=== PATIENT | male | born 1975 | race Caucasian/White ===

== ENCOUNTER 2017-11-09 17:03 | Emergency (ER) | payer OTHER ==
[2017-11-09 17:15] VITALS: BP 116/72
--- NOTE | 2017-11-09 17:47 | RAD ---
INDICATION: Left hand injury. TECHNIQUE: 4 views of the left hand were obtained. FINDINGS: There is soft tissue swelling in the third finger centered at the proximal interphalangeal joint. The bones are normal alignment. No fracture is seen. Joint spaces appear maintained. IMPRESSION: SOFT TISSUE SWELLING, NO FRACTURE IS SEEN.
--- NOTE | 2017-11-09 18:15 | UC ---
Upper Extremity HPI - HPI Summary HPI Summary: Patient endorses pain to the left PIP joint of the middle finger and pain to the index finger which is worse with flexion and extension 3 weeks. He states he has injured both fingers at different times approximate 2-3 weeks ago. The index finger was hyperextended during a game of volleyball and he continues to have pain with flexion and extension. Worse with extension with radiation of pain into the dorsum of the hand. He is unable to flex fully and is unable to flex at the MCP joint past 90. The middle finger has swelling to the PIP joint with no other swelling, ecchymosis or injury to the DIP or MCP. - History of Current Complaint Chief Complaint: UCUpperExtremity Stated Complaint: FINGER PAIN Time Seen by Provider: 11/09/17 17:23 Hx Obtained From: Patient ?: No Onset/Duration: Sudden Onset Severity Initially: Moderate Severity Currently: Moderate Pain Intensity: 2 Pain Scale Used: 0-10 Numeric Location Of Pain: Is Discrete @ - Index and middle finger of the left hand Aggravating Factor(s): Lifting, Flexion, Extension Alleviating Factor(s): Nothing Associated Signs And Symptoms: Positive: Negative Related History: Dominant Hand Left - Risk Factors Non-Orthopedic Risk Factor: Negative DVT Risk Factors: Negative Septic Arthritis Risk Factor: Negative Compartment Syndrome Risk Factors: Pain - Allergies/Home Medications Allergies/Adverse Reactions: Allergies Allergy/AdvReac Type Severity Reaction Status Date / Time No Known Allergies Allergy Verified 11/09/17 17:16 Home Medications: Home Medications NK [No Home Medications Reported] 11/09/17 [History Confirmed 11/09/17] PMH/Surg Hx/FS Hx/Imm Hx Previously Healthy: Yes Other History Of: Negative For: Anticoagulant Therapy - Surgical History Surgical History: None - Family History Known Family History: Negative: Cardiac Disease, Hypertension, Diabetes - Social History Occupation: Employed Full-time Lives: With Family Alcohol Use: Daily Alcohol Amount: 2 DRINKS/DAY Substance Use Type: Marijuana Smoking Status (MU): Current Every Day Smoker Type: Cigarettes Amount Used/How Often: 3-4 CIG/DAY Have You Smoked in the Last Year: Yes Review of Systems Constitutional: Negative Skin: Negative Respiratory: Negative Cardiovascular: Negative Motor: Decreased ROM Musculoskeletal: Arthralgia - Pain to the PIP joint of the left hand Neurological: Negative Psychological: Negative Is Patient Immunocompromised?: No All Other Systems Reviewed And Are Negative: Yes Physical Exam Triage Information Reviewed: Yes Appearance: Well-Appearing, Well-Nourished Vital Signs: Initial Vital Signs Temp 98.5 F 11/09/17 17:12 Pulse 80 11/09/17 17:12 Resp 18 11/09/17 17:12 BP 116/72 11/09/17 17:12 Pulse Ox 100 11/09/17 17:12 Vital Signs Reviewed: Yes Eye Exam: Normal Eyes: Positive: Conjunctiva Clear Neck exam: Normal Neck: Positive: Supple, No Lymphadenopathy Respiratory Exam: Normal Respiratory: Positive: Chest non-tender Cardiovascular Exam: Normal Cardiovascular: Positive: RRR Musculoskeletal Exam: Normal Musculoskeletal: Positive: Strength Intact Neurological Exam: Normal Neurological: Positive: Alert Psychological: Positive: Normal Response To Family Skin Exam: Normal Upper Extremity Course/Dx - Course Course Of Treatment: X-ray obtained which shows some soft tissue swelling, but no fractures seen. JOINT spaces are in alignment. I am concerned with the collateral ligament injury to the index finger. Possible small hairline volar plate fracture to the left middle finger, but this is not picked up on x-ray. The injuries have occurred 2-3 weeks ago and I see no benefit at shane taping the 2 fingers together unless for comfort. I have advised him to follow-up with an orthopedic hand surgeon as soon as possible and call for an appointment. He is okay with this plan at discharge. Pulses +2 intact bilaterally and there is no numbness or tingling in the ipsilateral fingertips. - Differential Dx/Diagnosis Differential Diagnosis/HQI/PQRI: Fracture (Closed), Strain, Sprain Provider Diagnoses: Collateral ligament strain, Soft tissue swelling PIP joint Discharge - Discharge Plan Condition: Stable Disposition: HOME Patient Education Materials: Finger Sprain (ED) Referrals: Coco Michael MD [Primary Care Provider] - Linden Mckay MD [Medical Doctor] - Additional Instructions: Please follow-up with Dr. Mckay or Dr. Grubbs Avoid sports activities until follow-up You can shane tape the 2 fingers together for comfort
== END 2017-11-09 18:00 | disposition home or self-care (01) ==
LOC: UCEAST 17:03
DX: S63.611A Unspecified sprain of left index finger, initial encounter (principal); X50.9XXA Other and unspecified overexertion or strenuous movements or postures, initial encounter; Y93.68 Activity, volleyball (beach) (court); Y92.39 Other specified sports and athletic area as the place of occurrence of the external cause; M79.89 Other specified soft tissue disorders; F17.210 Nicotine dependence, cigarettes, uncomplicated
CPT/HCPCS: 99211; G0463

== ENCOUNTER 2018-05-12 18:34 | Emergency (ER) | payer OTHER ==
[2018-05-12 19:13] VITALS: BP 118/68
--- NOTE | 2018-05-12 19:20 | UC ---
Lower Extremity/Ankle HPI - HPI Summary HPI Summary: This patient is a 42 year old male presenting [place] [facility] [place] with a chief complaint of left ankle pain since a few hours ago. Patient states that he turned his ankle playing soccer and felt immediate pain. The pain is rated 7/10 in severity. Symptoms aggravated by movement, palpation. Symptoms alleviated by nothing. Patient is unable to ambulate. - History of Current Complaint Stated Complaint: ANKLE INJURY Time Seen by Provider: 05/12/18 19:04 Hx Obtained From: Patient Onset/Duration: Lasting Hours, Still Present Severity Currently: Severe Pain Intensity: 7 Pain Scale Used: 0-10 Numeric Aggravating Factor(s): Ambulation Alleviating Factor(s): Nothing Able to Bear Weight: No - Allergies/Home Medications Allergies/Adverse Reactions: Allergies Allergy/AdvReac Type Severity Reaction Status Date / Time No Known Allergies Allergy Verified 05/12/18 19:11 Home Medications: Home Medications Naproxen Sodium [Aleve] 440 mg PO Q12HR PRN 05/12/18 [History Confirmed 05/12/18 ] PMH/Surg Hx/FS Hx/Imm Hx Previously Healthy: Yes Other Endocrine History: Negative: Diabetes Other Cardiovascular History: Negative: Hypertension Other History Of: Negative For: Anticoagulant Therapy - Surgical History Surgical History: None - Family History Known Family History: Negative: Cardiac Disease, Hypertension, Diabetes - Social History Alcohol Use: Daily Alcohol Amount: 2 DRINKS/DAY Substance Use Type: Marijuana Smoking Status (MU): Current Every Day Smoker Type: Cigarettes Amount Used/How Often: 3-4 CIG/DAY Have You Smoked in the Last Year: Yes Review of Systems Constitutional: Negative - Fever Musculoskeletal: Other: - Left ankle pain/injury All Other Systems Reviewed And Are Negative: Yes Physical Exam - Summary Physical Exam Summary: Appearance: Well-appearing, Well-nourished Skin: Warm, Dry, No rash Eyes: Normal, PERRL, EOMI, sclera anicteric ENT: Normal Neck: Supple, nontender Respiratory: Clear to auscultation Cardiovascular: S1, S2, no murmur, no rub, no gallop Abdomen: Soft, nontender, no organomegaly Bowel sounds: Present Musculoskeletal: Ankle is inverted with swelling predominately in lateral malleolus, pain primarily in lateral side. Neurological: Normal, A&Ox3, cranial nerves II-XII WNL, follows commands, gait not tested, sensation intact to pin and light touch Psychiatric: affect normal, behavior appropriate, dressed appropriately, judgment intact Triage Information Reviewed: Yes Vital Signs: Initial Vital Signs Temp 99.1 F 05/12/18 19:11 Pulse 105 05/12/18 19:11 Resp 18 05/12/18 19:11 BP 118/68 05/12/18 19:11 Pulse Ox 97 05/12/18 19:11 Diagnostics - Radiology Ankle XR Xray Interpretation: Positive (See Comments) - Ankle XR reveals, IMPRESSION: Posterior talus, possible fibula fracture. physician has reviewed this radiology report. Radiology Interpretation Completed By: Radiologist Lower Extremity Course/Dx - Course Course Of Treatment: This patient is a 42 year old male presenting to [facility] [place] with a chief complaint of left ankle pain since a few hours ago. Patient states that he turned his ankle playing soccer and felt immediate pain. Ankle XR reveals, IMPRESSION: Posterior talus, possible fibula fracture. physician has reviewed this radiology report. In the course the patient was given Hydrocodone/Acetaminophen 2tablet PO. Patient will be discharged with dx of talus fracture and possible fibula fractue and given crutches and posterior splint. Patient is advised to follow up with PCP if pain persists. The patient is agreeable with this plan. - Differential Dx/Diagnosis Provider Diagnoses: talus fracture and possible fibula fracture Discharge - Sign-Out/Discharge Documenting (check all that apply): Patient Departure All imaging exams completed and their final reports reviewed: Yes - Discharge Plan Condition: Stable Disposition: HOME Prescriptions: Hydrocodone/Acetaminophen [Reading 5-325 Tablet] 2 each PO Q6HR PRN #30 tablet MDD 8 PRN Reason: Pain Patient Education Materials: Talar Fracture in Adults (ED) Referrals: Howie Salazar MD [Medical Doctor] - Coco Michael MD [Primary Care Provider] - - Attestation Statements Document Initiated by Scribe: Yes Documenting Scribe: Santosh Duke Provider For Whom Scribe is Documenting (Include Credential): Orestes Calle MD Scribe Attestation: Santosh Fox, scribed for Orestes Calle MD on 05/12/18 at 2024.
[2018-05-12] MEDS ORDERED: HYDROcodone/ACETAMIN 5-325 MG* 1 TAB PO ONE ×2 (19:30→20:10)
--- NOTE | 2018-05-13 09:14 | RAD ---
INDICATION: Pain and swelling overlying the lateral malleolus after inversion injury COMPARISON: Comparison is made to similar radiograph dated May 19, 2016 TECHNIQUE: 3 views of the left ankle were obtained. FINDINGS: There is moderate soft tissue swelling overlying the fibular malleolus. On the AP and oblique views of the ankle the bones appear to be intact and appropriately aligned with no asymmetric widening of the ankle mortise. On the lateral view there is questionable discontinuity of the posterior cortex of the distal fibula. There is also questionable discontinuity of the posterior talus. Similar to the prior ankle radiograph is what could be an os trigonum. IMPRESSION: 1. THERE IS DEFINITELY ASYMMETRIC SOFT TISSUE SWELLING OVERLYING THE FIBULAR MALLEOLUS INDICATING AT LEAST A SOFT TISSUE INJURY/SPRAIN. 2. ON THE LATERAL VIEW ANKLE THERE IS QUESTIONABLE CORTICAL DISCONTINUITY INVOLVING THE POSTERIOR DISTAL LEFT FIBULA AND TALUS. IF AN OCCULT FRACTURE IS SUSPECTED SUPERIOR CHARACTERIZATION COULD BE MADE WITH CT. R0
== END 2018-05-12 20:45 | disposition home or self-care (01) ==
LOC: UCEAST 18:34
DX: S92.135A Nondisplaced fracture of posterior process of left talus, initial encounter for closed fracture (principal); X50.1XXA Overexertion from prolonged static or awkward postures, initial encounter; Y93.66 Activity, soccer; Y92.322 Soccer field as the place of occurrence of the external cause; F17.210 Nicotine dependence, cigarettes, uncomplicated
CPT/HCPCS: 99213; G0463

== ENCOUNTER 2024-09-22 10:52 | Observation (INO) ==
[2024-09-22 13:18] LABS: ABS Monocytes 0.6 10^3/uL (0.0-1.1); ABS Neutrophils 6.8 10^3/uL (1.5-7.6); Eosinophil % 0.3 %; Hematocrit 43.2 % (38-53); Hemoglobin 15.2 g/dL (13.2-16.3); Lymphocyte % 11.6 %; Mean Corpuscular Hemoglobin 31.9 pg (27-33); Mean Corpuscular Hgb Conc 35.1 g/dL (31-36); Mean Corpuscular Volume 90.8 fL (80-97); Platelet Count 244 10^3/uL (150-450); Red Blood Count 4.76 10^6/uL (4.06-5.63); Red Cell Distribution Width 12.9 % (12-17); White Blood Count 8.4 10^3/uL (3.6-10.2)
[2024-09-22 13:21] LABS: Urine Appearance Clear; Urine Bilirubin Negative (Negative); Urine Blood Negative (Negative); Urine Color Yellow; Urine Glucose Negative (Negative); Urine Ketones 3+ (Negative); Urine Nitrite Negative (Negative); Urine Protein 1+ (>=30 mg/dL) (Negative); Urine Specific Gravity 1.026 (1.002-1.030); Urine Urobilinogen 1+ (Negative); Urine pH 6.5 (5.0-8.0)
[2024-09-22 14:03] LABS: Urine Bacteria Absent /HPF (Absent); Urine Red Blood Cell 1+(3-5/hpf) /HPF (0-Trace); Urine White Blood Cell Trace(0-5/hpf) /HPF (0-Trace)
[2024-09-22 14:13] LABS: Albumin 4.2 g/dL (3.5-5.7); Albumin/Globulin Ratio 1.8 (1-3); C Reactive Protein 68.63 mg/L (<8.01); Calcium 9.2 mg/dL (8.6-10.3); Creatinine, Serum 0.73 mg/dL (0.67-1.17); Globulin 2.4 g/dL (2-4); Potassium 4.2 mmol/L (3.5-5.0); Total Protein 6.6 g/dL (6.4-8.9); eGFR CKD-EPI 113.6 (>60)
[2024-09-22] MEDS: Iohexol 350 (CONTRAST) 500 ML MDV IV ONE (15:04)
[2024-09-22] MEDS ORDERED: Ondansetron 4 mg VIAL 2 MG/ML 2 ml VIAL IV PRN (17:04)
[2024-09-22] MEDS ORDERED: oxyCODONE/Acetamin 5/325 mg TAB PO PRN (17:04)
[2024-09-22] MEDS ORDERED: HYDROmorphone 1 MG/1 ML SYRINGE IV SLOW PU PRN (17:04)
[2024-09-22] MEDS: Piperacillin/Tazobac 3.375 BAG 3.375 GM/100 ML BAG IV ONE (17:44)
[2024-09-22] MEDS: NS 0.9% 1000 ml BAG 1,000 ML IV SCH (18:25)
[2024-09-22] MEDS: Ondansetron 4 mg VIAL 2 MG/ML 2 ml VIAL IV ONE (20:18)
[2024-09-22] MEDS ORDERED: Piperacillin/Tazobac 3.375 BAG 3.375 GM/100 ML BAG IV SCH (22:00)
[2024-09-22] MEDS: Piperacillin/Tazobac 3.375 BAG 3.375 GM/100 ML BAG IV SCH (22:08)
[2024-09-23 06:40] LABS: ABS Lymphocytes 1.2 10^3/uL (1.0-4.8); ABS Monocytes 0.6 10^3/uL (0.0-1.1); ABS Neutrophils 4.9 10^3/uL (1.5-7.6); Eosinophil % 0.7 %; Hematocrit 38.5 % (38-53); Hemoglobin 13.7 g/dL (13.2-16.3); Lymphocyte % 17.3 %; Mean Corpuscular Hemoglobin 32.1 pg (27-33); Mean Corpuscular Hgb Conc 35.6 g/dL (31-36); Mean Corpuscular Volume 90.2 fL (80-97); Mean Platelet Volume 9.2 fL (7.5-11.2); Nucleated Red Blood Cells % 0.1 %/100WBC (0.0-0.8); Platelet Count 228 10^3/uL (150-450); Red Blood Count 4.27 10^6/uL (4.06-5.63); Red Cell Distribution Width 12.8 % (12-17); White Blood Count 6.7 10^3/uL (3.6-10.2)
[2024-09-23 06:52] LABS: C Reactive Protein 58.12 mg/L (<8.01); Calcium 8.7 mg/dL (8.6-10.3); Creatinine, Serum 0.72 mg/dL (0.67-1.17); Potassium 4.2 mmol/L (3.5-5.0); eGFR CKD-EPI 114.1 (>60)
[2024-09-23] MEDS: Hemorrhoidal OINT 1 TUBE PR PRN (14:20)
[2024-09-23] MEDS: Calcium Carb (TUMS) 500 mg CHEW TAB PO PRN (19:07)
[2024-09-24 10:04] VITALS: BP 124/75
== END 2024-09-24 12:50 | disposition home or self-care (01) ==
LOC: ED 10:52 → EDHOLD 10:52 → MED 19:39
PROVIDERS: ADMIT Surgery; ATTEND Surgery